=== PATIENT | male | born 1985 | race Caucasian/White ===

== ENCOUNTER 2017-07-24 14:38 | Emergency (ER) | END 2017-07-24 15:05 | disposition home or self-care (01) ==

== ENCOUNTER → 2018-11-04 | Emergency (ER) | payer BC ==
[~2018-11-04] VITALS: Ht 190.5 cm; Wt 150.4 kg
[~2018-11-04] MED LIST: ACETAMINOPHEN 500 MG TAB PO STA; DICL100G37 TOP; NAPR-985 PO; NPH10OT LEFT EAR
[2018-11-04 16:49] VITALS: BP 152/101; PULSE 106; RESP 18; Ht 190.5 cm; Wt 150.4 kg
--- NOTE | 2018-11-04 17:31 | ERD ---
ER Documentation Chief Complaint Chief Complaint right knee pain since yesterday HPI This is a 33-year-old male patient who presents emergency room with complaint of pain to right knee. Patient states that he was on his knees yesterday went to stand up heard a crack and could not get up. No prior injuries. Patient is ambulatory. ROS All systems reviewed and are negative except as per history of present illness. Medications Home Meds Active Scripts Diclofenac Sodium* (Voltaren* Gel) 1% -100 Gm Gel, 2 GM TOP QID for 10 Days, #1 TUB Prov:MELVIN GARCIA NP 11/04/18 Naproxen* (Naprosyn*) 500 Mg Tablet, 500 MG PO BID PRN for PAIN AND/OR INFLAMMATION, #30 TAB Prov:MELVIN GARCIA NP 11/04/18 Neomycin/Polymyxin/Hydrocort* (Cortisporin* Otic) 10 Ml Susp, 4 DROP LEFT EAR QID for 7 Days, EA Prov:ENRIQUE VARGAS PA-C 07/24/17 Allergies Allergies: Coded Allergies: No Known Allergy (Unverified , 11/04/18) PMhx/Soc History of Surgery: Yes (NOSE 2004) Anesthesia Reaction: No Hx Neurological Disorder: No Hx Respiratory Disorders: No Hx Cardiac Disorders: No Hx Psychiatric Problems: No Hx Miscellaneous Medical Probl: No Hx Alcohol Use: No Hx Substance Use: No Hx Tobacco Use: No Smoking Status: Never smoker FmHx Family History: No diabetes, No coronary disease, No other Physical Exam Vitals Vital Signs Date Temp Pulse Resp B/P (MAP) Pulse Ox O2 O2 Flow FiO2 Time Delivery Rate 11/04/18 98.1 106 18 152/101 97 16:49 (118) Physical Exam Const: No acute distress Head: Atraumatic Eyes: Normal Conjunctiva ENT: Normal External Ears, Nose and Mouth. Resp: Clear to auscultation bilaterally Cardio: Regular rate and rhythm, no murmurs Back: No midline or flank tenderness Neur: Awake and alert Psych: Normal Mood and Affect Lower Extremity Pain onset: yesterday Skin: No laceration, no bruising, no abrasions Compartments: Soft, no erythema, normothermic Motor: Full active range of motion hip/ankle/foot. Pain with flexion/extension passive and active Sensation: No paraesthesia Bones: Nontender pelvis/patella/head of fibula/ malleoli/foot. +tenderness at head of fibula. Joints: No effusion, patella midline, neg anterior drawer, neg posterior drawer, neg [place], neg [place], neg Varus/Valgus Pulses/Perfusion: 2+ DP, Capillary refill < 2 seconds Gait: steady symmetrical gait [place] Rule for xray: recommended Results 24 hrs Current Medications Medications Dose Sig/Ching Start Time Status Last (Trade) Ordered Route PRN Stop Time Admin Dose Reason Admin 1,000 mg ONCE STAT 11/04/18 DC 11/04/18 Acetaminophen PO 17:27 11/04/18 17:39 (Tylenol 17:30 Tab) Procedures/MDM PROCEDURES/MDM DIAGNOSTIC IMAGING: Read by radiologist. Right Knee Negative for fracture, dislocation, effusion PROCEDURES: Steve application: Neurovascularly intact post splint placement with good fit. -Medications: Tylenol Patient tolerated medication well with no adverse reactions. Patient reported improvement in pain. MDM: The patient's extremity symptoms have stabilized while he has been evaluated in the department and are appropriate for outpatient follow up. No evidence of compartment syndrome, neurologic injury, vascular injury, open joint, open fracture, tendon laceration, or foreign body. Without swelling, normothermic, no fever or malaise, low suspicion for septic joint, gout, p suedogout. DISPOSITION and PLAN: RX: Catrina Oliver The patient has been discharge home to follow-up with community physician. Departure Diagnosis: Primary Impression: Knee pain Chronicity: acute Laterality: right Qualified Codes: M25.561 - Pain in right knee Condition: Stable MELVIN GARCIA NP Nov 04, 2018 17:31
== END | disposition home or self-care (01) ==
LOC: FTE 16:41
DX: M25.561 Pain in right knee (principal)
CPT/HCPCS: 73562